=== PATIENT | male | born 1965 | race American Indian/Alaskan Native ===

== ENCOUNTER 2017-11-06 16:21 | Inpatient (IN) | payer OTHER ==
[2017-11-06] MEDS ORDERED: ASPIRIN PO ONE (17:01)
[2017-11-06 17:50] LABS: Basophils % (Auto) 0.9 % (0.0-1.8); Eosinophils # (Auto) 0.2 K/mm3 (0.0-0.4); Eosinophils % (Auto) 3.6 % (0.0-4.3); Hematocrit 43.4 % (35.5-45.6); Hemoglobin 14.6 gm/dl (11.8-15.2); Lymphocytes # (Auto) 2.4 K/mm3 (1.2-5.4); Lymphocytes % (Auto) 44.5 % (13.4-35.0); Mean Corpuscular HGB Conc 34 % (32-34); Mean Corpuscular Hemoglobin 30 pg (28-32); Mean Corpuscular Volume 90 fl (84-94); Monocytes # (Auto) 0.5 K/mm3 (0.0-0.8); Monocytes % (Auto) 10.3 % (0.0-7.3); Platelet Count 177 K/mm3 (140-440); Red Blood Count 4.82 M/mm3 (3.65-5.03); Red Cell Distribution Width 13.5 % (13.2-15.2)
[2017-11-06 18:03] LABS: BUN/Creatinine Ratio 75; Blood Urea Nitrogen 15 mg/dL (9-20); Calcium 9.2 mg/dL (8.4-10.2); Hemolysis Index 16
[2017-11-07] MEDS ORDERED: ZOFRAN IV ONE (00:54)
[2017-11-07] MEDS ORDERED: NITRO-BID 2% TP ONE (00:54)
[2017-11-07] MEDS ORDERED: SUBLIMAZE IV ONE (00:54)
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
[2017-11-07] MEDS ORDERED: ASPIRIN ONE (01:54)
--- NOTE | 2017-11-07 02:43 | Cat Scan Report ---
FINAL REPORT EXAM: CT ANGIO CHEST HISTORY: chest pain starting on international flight COMPARISON: None available. TECHNIQUE: Contiguous axial images were obtained. Additional sagittal and coronal reformatted images were obtained. Administration of IV contrast given per institution protocol. Images submitted for interpretation. Max intensity projection images. 100 cc Omnipaque 350. FINDINGS: Mild cardiac enlargement. Ascending thoracic aorta measures 3.6 centimeters in diameter within normal limits. No acute dissection or rupture of the thoracic aorta. No pulmonary embolus. No pathologically enlarged intrathoracic or axillary lymph nodes. Tracheobronchial tree is patent. Linear patchy densities at the dependent portions of the lungs. No dense airspace consolidation or pleural effusion. Fatty infiltration of the liver. Mild nodular thickening of adrenal glands. Thoracic vertebral body heights are preserved. IMPRESSION: No pulmonary embolus. Mild cardiac enlargement. Nonspecific linear densities at the lung bases compatible with mild atelectasis or minimal interstitial edema. No dense airspace consolidation or pleural effusion.
[2017-11-07] MEDS ORDERED: MORPHINE IV PRN (07:55)
[2017-11-07] MEDS ORDERED: NITROMIST TL PRN (07:57)
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
[2017-11-07 09:56] VITALS: BP 129/84
[2017-11-07] MEDS ORDERED: BABY ASPIRIN PO SCH (10:00)
[2017-11-07] MEDS ORDERED: PROTONIX PO SCH (13:00)
--- NOTE | 2017-11-07 13:15 | Treadmill Report ---
NUCLEAR PERFUSION STUDY REASON FOR STUDY: Chest pain. READING PHYSICIAN: Terrell Pierre MD IMAGING PROTOCOL: Single isotope used. The patient received 10 mCi of Technetium 99m Tetrofosmin for resting image and 28 mCi of Technetium 99m Tetrofosmin for stress imaging. The imaging for the whole procedure was completed 30-90 minutes following the initial injection of Technetium 99m tetrofosmin. The SPECT imaging in the 180 degree arc was performed in the right anterior oblique projection. Computerized reconstruction of the images was performed for analysis. IMAGING RESULTS: Normal cavity size from stress to rest. Normal distribution of radionuclide in the anterior, inferior, septal, and apical regions. Gated SPECT, 65% with no wall motion abnormality. The patient exercised on Vick protocol for 12 minutes with no EKG changes suggestive of ischemia. SUMMARY: 1. Negative treadmill EKG. 2. Good exercise capacity 12 minutes of Vick protocol. 3. No exaggerated BP response to exercise. 4. Normal rest and stress myocardial perfusion scan. No skin stress ischemia. No wall motion abnormality. Gated SPECT, 65%. JOB# [id number] AUGUSTINE/NTS
--- NOTE | 2017-11-07 14:18 | Discharge Summary ---
Providers - Providers Date of Admission: 11/07/17 04:40 Date of discharge: 11/07/17 Attending physician: ALEJANDRA EDWARDS Primary care physician: MARINE SERVICES TECHNICIAN Hospitalization Condition: Fair Hospital course: Discharge diagnosis: Chest pain, likely from GERD Disposition: DC-01 TO HOME OR SELFCARE Time spent for discharge: 32 minutes Core Measure Documentation - Palliative Care Palliative Care/ Comfort Measures: Not Applicable - Core Measures Any of the following diagnoses?: none Exam - Constitutional Vitals: Temp Pulse Resp BP Pulse Ox 97.5 F L 60 18 129/84 94 11/07/17 08:28 11/07/17 08:28 11/07/17 08:28 11/07/17 08:28 11/07/17 08:28 General appearance: Present: no acute distress, well-nourished - EENT Eyes: Present: PERRL ENT: hearing intact, clear oral mucosa - Neck Neck: Present: supple, normal ROM - Respiratory Respiratory effort: normal Respiratory: bilateral: CTA - Cardiovascular Heart Sounds: Present: S1 & S2. Absent: rub, click - Extremities Extremities: pulses symmetrical, No edema Peripheral Pulses: within normal limits - Abdominal General gastrointestinal: Present: soft, non-tender, non-distended, normal bowel sounds - Integumentary Integumentary: Present: clear, warm, dry - Musculoskeletal Musculoskeletal: gait normal, strength equal bilaterally - Psychiatric Psychiatric: appropriate mood/affect, intact judgment & insight - Neurologic Neurologic: CNII-XII intact, moves all extremities Plan Activity: advance as tolerated Weight Bearing Status: Weight Bear as Tolerated Diet: low fat, low salt Follow up with: [facility] [Provider Group] - 7 Days PRIMARY CARE, [Primary Care Provider] - 3-5 Days Prescriptions: Pantoprazole [Protonix TAB] 40 mg PO QDAY #30 tablet
[2017-11-07] MEDS ORDERED: LOVENOX SUB-Q SCH (22:00)
== END 2017-11-07 16:38 | disposition home or self-care (01) | DRG 392 ==
LOC: ED 16:21 → 4A 11-07 04:40
PROVIDERS: ADMIT Internal Medicine; ATTEND Internal Medicine
DX: K21.9 Gastro-esophageal reflux disease without esophagitis (principal); I10 Essential (primary) hypertension; Z82.49 Family history of ischemic heart disease and other diseases of the circulatory system; Z82.3 Family history of stroke; Z83.3 Family history of diabetes mellitus; Z79.82 Long term (current) use of aspirin
CPT/HCPCS: 36415; 71275; 78452; 80048; 84484; 85025; 93005; 93010; 93017; A9502; J2405; J3010; Q9967

== ENCOUNTER 2020-09-12 10:28 | Emergency (ER) | payer OTHER ==
--- NOTE | 2020-09-12 10:42 | Event Note ---
ED Screening Note Date of service: 09/12/20 Time: 10:41 ED Screening Note: Patient complains of left-sided chest pain Pain radiates to left shoulder and neck Seen at [facility] 3 days ago for same pain, however pain continues Denies shortness of breath Patient states recent travel from [place] 2 weeks ago-denies CT scan being done at the [facility] 3 days ago Discussed patient with Dr. Jimenes-recommend CT angio of chest This initial assessment/diagnostic orders/clinical plan/treatment(s) is/are subject to change based on patients health status, clinical progression and re- assessment by fellow clinical providers in the ED. Further treatment and workup at subsequent clinical providers discretion. Patient/guardian urged not to elope from the ED as their condition may be serious if not clinically assessed and managed. Initial orders include: Labs EKG CT angio chest
[2020-09-12 11:02] LABS: Basophils # (Auto) 0.1 K/mm3 (0.0-0.1); Eosinophils # (Auto) 0.2 K/mm3 (0.0-0.4); Eosinophils % (Auto) 3.7 % (0.0-4.3); Hematocrit 47.2 % (35.5-45.6); Lymphocytes # (Auto) 1.9 K/mm3 (1.2-5.4); Lymphocytes % (Auto) 40.3 % (13.4-35.0); Mean Corpuscular HGB Conc 34 % (32-34); Mean Corpuscular Volume 89 fl (84-94); Monocytes # (Auto) 0.6 K/mm3 (0.0-0.8); Monocytes % (Auto) 11.9 % (0.0-7.3); Platelet Count 186 K/mm3 (140-440); Red Blood Count 5.29 M/mm3 (3.65-5.03); Red Cell Distribution Width 13.2 % (13.2-15.2)
--- NOTE | 2020-09-12 11:08 | XRay Report ---
CHEST 2 VIEWS INDICATION / CLINICAL INFORMATION: chest pain, left sided. COMPARISON: None available. FINDINGS: SUPPORT DEVICES: None. HEART / MEDIASTINUM: No significant abnormality. LUNGS / PLEURA: No significant pulmonary or pleural abnormality. No pneumothorax. ADDITIONAL FINDINGS: No significant additional findings. IMPRESSION: No significant abnormality Signer Name: Prasanna Leslie MD FACR Signed: 09/12/2020 11:03 AM Workstation Name: [id number]
[2020-09-12 11:18] LABS: Alanine Aminotransferase 53 units/L (7-56); Albumin 4.1 g/dL (3.9-5); BUN/Creatinine Ratio 13; Blood Urea Nitrogen 14 mg/dL (9-20); Calcium 9.6 mg/dL (8.4-10.2); Hemolysis Index 12
--- NOTE | 2020-09-12 12:42 | Cat Scan Report ---
CT angio chest INDICATION / CLINICAL INFORMATION: Patient complains of LEFT sided chest pain, traveled from [place]. TECHNIQUE: Axial CT images were obtained after injection of 100 cc of Omnipaque 350 IV contrast using CTA protoc ol. 3 plane MIP / 3D reconstructions were produced. All CT scans at this location are performed using CT dose reduction for ALARA by means of automated exposure control. COMPARISON: None available. FINDINGS: Following the administration of intravenous contrast, no filling defects are seen in the main pulmona ry arteries or their branches. No significant parenchymal abnormality is seen in the lungs. No enlarg ed mediastinal or hilar lymph nodes are identified. No significant skeletal abnormality is present. IMPRESSION: No evidence of pulmonary embolus. Negative exam Signer Name: Prasanna Leslie MD FACR Signed: 09/12/2020 12:38 PM Workstation Name: [id number]
[2020-09-12] MEDS ORDERED: KETOROLAC 30 MG/1 ML INJ IV ONE (14:48)
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
[2020-09-12 16:01] VITALS: BP 130/80
--- NOTE | 2020-09-14 13:37 | Electrocardiograph Report ---
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
== END 2020-09-12 15:30 | disposition home or self-care (01) ==
LOC: ED 10:28
DX: M94.0 Chondrocostal junction syndrome [Tietze] (principal); R09.1 Pleurisy; R07.89 Other chest pain; I10 Essential (primary) hypertension; Z98.890 Other specified postprocedural states; Z79.899 Other long term (current) drug therapy
CPT/HCPCS: 36415; 71046; 71275; 80053; 84484; 85025; 93005; 96374; 99284; J1885; Q9967